=== PATIENT | female | born 2005 | race Caucasian/White ===

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

== ENCOUNTER 2025-02-23 17:14 | Emergency (ER) | payer OTHER ==
[~2025-02-23] VITALS: Ht 165.1 cm; Wt 68.0 kg
[~2025-02-23 17:14] MED LIST changes: +ACET-3385 PO; -CEPH-558 PO; +OSEL75CA45 PO
[2025-02-23 17:20] VITALS: BP 103/70; PULSE 78; RESP 18; TEMP 98.5; O2SAT 98
[2025-02-23] MEDS: PredniSONE 20 MG TABLET PO ONE (19:46)
[2025-02-23] MEDS ORDERED: TRIA15CR49 TP (20:07)
[2025-02-23] MEDS ORDERED: PRED-554 PO (20:08)
[2025-02-24] MEDS ORDERED: TRIA15CR49 TP (11:48)
== END 2025-02-23 20:56 | disposition home or self-care (01) ==
LOC: EMS 17:14
DX: L30.9 Dermatitis, unspecified (principal)
CPT/HCPCS: 99283; J7512